=== PATIENT | female | born 1950 | race Native Hawaiian/Other Pacific Islander ===

== ENCOUNTER 2019-08-24 20:32 | Emergency (ER) | payer OTHER ==
[~2019-08-24] VITALS: Ht 162.6 cm; Wt 94.8 kg
[~2019-08-24 20:32] MED LIST: CELEXA20 MG PO; LISI10TA11 PO; OXYB5TAB56 PO; TRIA75TA61 PO
[2019-08-24 21:22] VITALS: BP 138/80; TEMP 98.3
== END 2019-08-24 21:23 | disposition home or self-care (01) ==
LOC: ED 20:32
PROC: 0HQFXZZ Repair Right Hand Skin, External Approach (ICD-10-PCS; principal; 2019-08-24)
DX: S61.210A Laceration without foreign body of right index finger without damage to nail, initial encounter (principal); W25.XXXA Contact with sharp glass, initial encounter; Y92.239 Unspecified place in hospital as the place of occurrence of the external cause
CPT/HCPCS: 99282